=== PATIENT | female | born 1970 | race Caucasian/White ===

== ENCOUNTER 2016-09-20 17:28 | Emergency (ER) | payer MEDICAID, OTHER ==
[~2016-09-20] VITALS: Ht 157.5 cm; Wt 75.5 kg
[~2016-09-20 17:28] MED LIST: Z.0.NO CURRENT MEDS; ZOFR4TAB3 SL
[2016-09-20 17:33] VITALS: BP 106/59; PULSE 112; RESP 16; TEMP 101; O2SAT 99
[2016-09-20] MEDS ORDERED: ONDANSETRON HCL 4 MG/2 ML VIAL IV PUSH ONE (17:45)
[2016-09-20] MEDS ORDERED: SODIUM CHLOR 0.9% 1000 ML INJ 1,000 ML IV ONE ×3 (17:45→18:45)
--- NOTE | 2016-09-20 17:48 | PD ---
HPI Chief Complaint: GI Complaint Time Seen by Provider: 17:41 Travel History International Travel<30 days: No Contact w/Intl Traveler<30days: No Traveled to known affect area: No History of Present Illness HPI This 45-year-old female is complaining of vomiting. She's been vomiting since yesterday. She is not having abdominal pain or diarrhea. She has had some fever. Her son had a similar illness yesterday. She has taken some Zofran but was not effective. She says she has vomited 5 or 6 times today. PFSH Past Medical History Medical History: Denies Significant Hx Hx Anticoagulant Therapy: No Diabetes: No Diminished Hearing: No Tetanus Vaccination: Unknown Influenza Vaccination: No ?: Not LMP: 09/12/16 Past Surgical History Surgical History: No Previous Surgery Social History Alcohol Use: No Tobacco Use: No Substance Use: No Allergies-Medications (Allergen,Severity, Reaction): Coded Allergies: Sulfa (Verified Allergy, Severe, 09/20/16) Reported Meds & Prescriptions Reported Meds & Active Scripts Active No Active Prescriptions or Reported Medications Review of Systems General / Constitutional: Positive: Fever Eyes: No: Diploplia, Blurred Vision HENT: No: Headaches, Vertigo Cardiovascular: No: Chest Pain or Discomfort, Palpitations Respiratory: No: Cough, Shortness of Breath Gastrointestinal: Positive: Vomiting, No: Diarrhea Genitourinary: No: Nocturia Musculoskeletal: No: Myalgias Skin: No Rash, No Itching Physical Exam Narrative Temp is 101GENERAL well-developed female SKIN: Focused skin assessment warm/dry. HEAD: Atraumatic. Normocephalic. EYES: Pupils equal and round. No scleral icterus. No injection or drainage. ENT: No nasal bleeding or discharge. Mucous membranes pink and moist. NECK: Trachea midline. No JVD. CARDIOVASCULAR: Regular rate and rhythm. No murmur appreciated. RESPIRATORY: No accessory muscle use. Clear to auscultation. Breath sounds equal bilaterally. GASTROINTESTINAL: Abdomen soft, non-tender, nondistended. Hepatic and splenic margins not palpable. MUSCULOSKELETAL: No obvious deformities. No clubbing. No cyanosis. No edema. NEUROLOGICAL: Awake and alert. No obvious cranial nerve deficits. Motor grossly within normal limits. Normal speech. PSYCHIATRIC: Appropriate mood and affect; insight and judgment normal. Data Data Last Documented VS Vital Signs Date Time Temp Pulse Resp B/P Pulse Ox O2 Delivery O2 Flow Rate FiO2 09/20/16 17:33 101.0 112 16 106/59 99 Orders Complete Blood Count With Diff (09/20/16 17:44) Basic Metabolic Panel (Bmp) (09/20/16 17:44) Sodium Chlor 0.9% 1000 Ml Inj (Ns 1000 M (09/20/16 17:45) Sodium Chlor 0.9% 1000 Ml Inj (Ns 1000 M (09/20/16 17:45) Ondansetron Inj (Zofran Inj) (09/20/16 17:45) Acetaminophen (Tylenol) (09/20/16 18:00) Urinalysis - C+S If Indicated (09/20/16 17:48) Prochlorperazine Inj (Compazine Inj) (09/20/16 18:15) Diphenhydramine Inj (Benadryl Inj) (09/20/16 18:15) Sodium Chlor 0.9% 1000 Ml Inj (Ns 1000 M (09/20/16 18:45) Labs Laboratory Tests Test 09/20/16 17:50 White Blood Count 15.9 TH/MM3 Red Blood Count 4.81 MIL/MM3 Hemoglobin 12.9 GM/DL Hematocrit 39.4 % Mean Corpuscular Volume 82.1 FL Mean Corpuscular Hemoglobin 26.9 PG Mean Corpuscular Hemoglobin 32.8 % Concent Red Cell Distribution Width 14.1 % Platelet Count 334 TH/MM3 Mean Platelet Volume 8.7 FL Neutrophils (%) (Auto) 90.6 % Lymphocytes (%) (Auto) 3.4 % Monocytes (%) (Auto) 3.9 % Eosinophils (%) (Auto) 0.0 % Basophils (%) (Auto) 2.1 % Neutrophils # (Auto) 14.5 TH/MM3 Lymphocytes # (Auto) 0.5 TH/MM3 Monocytes # (Auto) 0.6 TH/MM3 Eosinophils # (Auto) 0.0 TH/MM3 Basophils # (Auto) 0.3 TH/MM3 CBC Comment DIFF FINAL Differential Comment Sodium Level 139 MEQ/L Potassium Level 3.6 MEQ/L Chloride Level 103 MEQ/L Carbon Dioxide Level 24.4 MEQ/L Anion Gap 12 MEQ/L Blood Urea Nitrogen 14 MG/DL Creatinine 1.30 MG/DL Estimat Glomerular Filtration 44 ML/MIN Rate Random Glucose 110 MG/DL Calcium Level 8.5 MG/DL MDM Medical Decision Making Medical Screen Exam Complete: Yes Emergency Medical Condition: Yes Medical Record Reviewed: Yes Differential Diagnosis Differential includes acute gastritis, gastroenteritis, viral syndrome Narrative Course White count is 15. Her electrolytes are normal. She's been given 3 L of fluid with improvement. A friend and Compazine she is feeling better. She'll be released with prescription for Phenergan suppository she also has some Zofran at home that she can use. Diagnosis Primary Impression: Viral syndrome Scripts Promethazine Supp (Phenergan Supp)50 Mg Supp50 Mg RECTAL Q6H PRN (NAUSEA OR VOMITING) #10 SUPP Ref 0 Prov:Trent Bowman MD 09/20/16 Disposition: 01 DISCHARGE HOME Condition: Stable Trent Bowman MD Sep 20, 2016 17:48
[2016-09-20] MEDS ORDERED: ACETAMINOPHEN 325 MG TAB PO ONE (18:00)
[2016-09-20 18:13] LABS: AUTOMATED NEUTROPHIL # 14.5 TH/MM3 (1.8-7.7); BASOPHIL # 0.3 TH/MM3 (0-0.2); BASOPHIL % 2.1 % (0.0-2.0); HEMATOCRIT 39.4 % (35.0-46.0); LYMPH % 3.4 % (9.0-44.0); LYMPHOCYTE # 0.5 TH/MM3 (1.0-4.8); MEAN CELL VOLUME 82.1 FL (80.0-100.0); MEAN CORPUSCULAR HEMOGLOBIN 26.9 PG (27.0-34.0); MEAN CORPUSCULAR HGB CONC 32.8 % (32.0-36.0); MONO % 3.9 % (0.0-8.0); NEUT % 90.6 % (16.0-70.0); PLATELET COUNT 334 TH/MM3 (150-450); RED BLOOD COUNT 4.81 MIL/MM3 (4.00-5.30); RED CELL DISTRIBUTION WIDTH 14.1 % (11.6-17.2); WHITE BLOOD COUNT 15.9 TH/MM3 (4.0-11.0)
[2016-09-20] MEDS ORDERED: diphenhydrAMINE HCL 50 MG/ML VIAL IV PUSH ONE (18:15)
[2016-09-20] MEDS ORDERED: PROCHLORPERAZINE INJ 10 MG/2 ML VIAL IV PUSH ONE (18:15)
[2016-09-20 18:17] LABS: HEMO FLAGS DIFF FINAL
[2016-09-20 18:18] LABS: POTASSIUM 3.6 MEQ/L (3.5-5.1)
[2016-09-20 18:21] LABS: BICARBONATE 24.4 MEQ/L (21.0-32.0)
[2016-09-20] MEDS ORDERED: PROM1SUP8 RECTAL (19:14)
[2016-09-20 19:30] VITALS: BP 110/62
== END 2016-09-20 19:30 | disposition home or self-care (01) ==
LOC: PHED 17:28
DX: B34.9 Viral infection, unspecified (principal)
CPT/HCPCS: 80048; 85025; 96361; 96374; 96375; 99284; J0780; J1200; J2405; J7030